=== PATIENT | female | born 1980 | race Caucasian/White ===

== ENCOUNTER → 2017-02-28 | Outpatient (CLI) | payer BC ==
[~2017-02-28] MED LIST: AMIT10TA6 PO; ASCO500T9 PO; ASPI-557 PO; ASPI1TAB7 PO; BUPR75TA8 PO; CETI10CA19 PO; CHOL200026 PO; CLON1TAB23 PO; CYAN500T2 PO; DIVA250T4 PO; ESTR8.1S TD; FERR-70 PO; LACT1TAB26 PO; MULT-933 PO; VENL75CA60 PO
--- NOTE | 2017-02-28 12:36 | DI ---
Indication: ITS.REASON: R10.31 RLQ PAIN PROCEDURE: CT ABD/PELVIS W/O CONTRAST: Encounter: Initial Comparison: None Technique: Axial CT images were performed through the abdomen and pelvis without intravenous contrast. Coronal and sagittal two-dimensional reformats. Automated Exposure Control and Iterative Reconstruction dose reducing techniques were utilized. Findings: The lung bases are clear. The unenhanced contours of the liver are grossly normal. Gallbladder, spleen, pancreas, adrenal glands and kidneys are within normal limits. No abdominal or pelvic lymphadenopathy. Prominent cysts or follicles in the left ovary. Uterus is surgically absent. No evidence of a bowel obstruction. There is inflammation surrounding an enlarged appendix measuring up to 1 cm in diameter. This is in a retrocecal location, best seen on axial images 40 through 50. No free air or rim-enhancing abscess. Bone windows are within normal limits. Impression: Acute appendicitis. Emergent surgical consultation is recommended. Results were discussed with the ordering physician Dr. Chin at 1225 on February 28, 2017. .
== END ==
LOC: IMA 10:31
PROVIDERS: ATTEND Family Medicine
DX: K35.80 Unspecified acute appendicitis (principal); R10.31 Right lower quadrant pain